=== PATIENT | male | born 1990 | race Hispanic/Latino ===

== ENCOUNTER 2020-03-22 12:40 | Emergency (ER) | payer BC ==
[2020-03-22] MEDS ORDERED: ACETAMINOPHEN EXTRA STRENGTH 500 MG TABLET ONE (14:11)
[2020-03-22] MEDS ORDERED: ALBUTEROL INHALER 90MCG/INH IH ONE (14:11)
[2020-03-22] MEDS ORDERED: AZITHROMYCIN 250 MG TABLET PO ONE (14:11)
[2020-03-22 14:33] LABS: BASOPHILS % (AUTO) 0.3 % (0.0-5.0); EOSINOPHILS % (AUTO) 0.5 % (0.0-8.0); HEMATOCRIT 44.3 % (42-54); LYMPHOCYTES % (AUTO) 15.6 % (21.0-51.0); MEAN CORPUSCULAR HEMOGLOBIN 29.5 pg (27.0-33.0); MEAN CORPUSCULAR HGB CONC 33.4 g/dL (32.0-36.0); MEAN CORPUSCULAR VOLUME 88.4 fL (79-99); MONOCYTES % (AUTO) 11.7 % (3.0-13.0); NEUTROPHILS % (AUTO) 71.4 % (40.0-77.0); PLATELET COUNT (AUTO) 189 K/uL (130-400); RED BLOOD CELL COUNT(AUTO) 5.01 MIL/uL (4.50-6.20); RED CELL DISTRIBUTION WIDTH 12.7 % (11.0-15.5); WHITE BLOOD COUNT (AUTO) 3.7 K/uL (4.8-10.8)
[2020-03-22 14:53] LABS: CREATININE 1.3 mg/dL (0.5-1.5); POTASSIUM 3.7 mmol/L (3.5-5.1)
[2020-03-22 14:55] LABS: INR 0.99 (0.85-1.15); PARTIAL THROMBOPLASTIN TIME 30.8 SEC (26.3-35.5); PROTHROMBIN TIME 10.7 SEC (9.6-11.6)
[2020-03-22 14:57] LABS: ALBUMIN 3.6 g/dL (3.5-5.0); BILIRUBIN,TOTAL 0.2 mg/dL (0.2-1.0); TOTAL PROTEIN, SERUM 7.7 g/dL (6.0-8.3)
[2020-03-22 15:15] LABS: RAPID GROUP A STREP NEGATIVE (NEGATIVE)
[2020-03-22 16:34] LABS: FERRITIN 517 ng/mL (30-400)
== END 2020-03-22 15:41 | disposition home or self-care (01) ==
LOC: EDH 12:40
DX: U07.1 COVID-19 (principal); J12.89 Other viral pneumonia
CPT/HCPCS: 36415; 71045; 80053; 82550; 82728; 83605; 84145; 84484; 85025; 85378; 85610; 85730; 86140; 87804 ×2; 87880; 93005; 99285; U0003